=== PATIENT | female | born 1950 | race American Indian/Alaskan Native ===

== ENCOUNTER 2017-05-17 08:14 | Outpatient (CLI) | payer OTHER ==
--- NOTE | 2017-05-23 09:48 | Mammography Report ---
BILATERAL DIGITAL DIAGNOSTIC MAMMOGRAM : 05/17/17 08:14:00 CLINICAL: This is a followup for calcifications identified at screening. We were unable to obtain comparison mammogram. COMPARISON:09/29/16 FINDINGS:Bilateral spot magnification views were performed. Scattered largely punctate right upper calcifications are stable with no suspicious forms. Spot magnification view of the left breast demonstrates a benign intraparenchymal lymph node with central fat that corresponds to the previously described asymmetry. IMPRESSION: Probably benign right calcifications. BI-RADS CATEGORY: 3 -- Probably Benign RECOMMENDATION: A bilateral diagnostic mammogram in six months to reevaluate calcifications of the right breast with magnification views. ACR BI-RADS MAMMOGRAPHIC CODES: 0 = Needs additional imaging evaluation; 1 = Negative; 2 = Benign; 3 = Probably benign; 4 = Suspicious; 5 = Malignant; 6 = Known biopsy-proven malignancy COMMENT: 1. Dense breast tissue, i.e., adenosis, fibrocystic changes, etc., may obscure an underlying neoplasm. 2. Approximately 10% of cancers are not detected with mammography. 3. A negative mammography report should not delay biopsy if a clinically suspicious mass is present. COMMENT: Patient follow-up letters are generated by our [employer] application.
== END 2017-05-17 08:15 | disposition home or self-care (01) ==
LOC: SPVWC 08:14
PROVIDERS: ATTEND Family Medicine
DX: R92.1 Mammographic calcification found on diagnostic imaging of breast (principal)
CPT/HCPCS: 77066